=== PATIENT | female | born 1985 | race Caucasian/White ===

== ENCOUNTER 2018-04-09 02:10 | Observation (INO) | payer MEDICAID ==
[~2018-04-09] VITALS: Ht 165.1 cm; Wt 68.0 kg
[2018-04-09 02:10] VITALS: BP_SYST 123
--- NOTE | 2018-04-09 02:10 | NUR ---
Placed in room 06. To gown for exam. Side rails up. Report given to JOEY Monterroso.
--- NOTE | 2018-04-09 02:12 | NUR ---
ER at bedside examining patient.
--- NOTE | 2018-04-09 02:18 | NUR ---
Patient to OB via rney for evaluation.
[2018-04-09] MEDS ORDERED: ACETAMINOPHEN 325 MG TABLET PO ONE (03:45)
--- NOTE | 2018-04-09 05:21 | NUR ---
Patient will be admitted to care of Dr. Fournier. Admitted to OB unit. Will go to room OB-1. Belongings list completed. Summary report printed. Report will be given at bedside.
--- NOTE | 2018-04-09 05:30 | NUR ---
Immobilizer placed to left knee. Pedal pulse within normal limits prior to placement. Pedal pulse within normal limits after immobilizer placed. Pt tolerated well.
[2018-04-09 05:35] VITALS: BP_SYST 123
[2018-04-09] MEDS: HYDROcodone/ACETAMIN 5-325 MG TAB (NORCO/ VICODIN) PO PRN ×2 (05:38→12:14)
[2018-04-09 09:31] LABS: BARBITURATE, URINE NEGATIVE (NEG <=200); BENZODIAZEPINE, URINE NEGATIVE (NEG <=150); CANNABINOID, URINE NEGATIVE (NEG <=50); COCAINE, URINE NEGATIVE (NEG <=150); METHAMPHETAMINES SCREEN,URINE NEGATIVE (NEG <=500); OPIATE, URINE POSITIVE (NEG <=100); PHENCYCLIDINE SCREEN,URINE NEGATIVE (NEG <=25); UR TRICYCLIC ANTIDEPRESSANTS NEGATIVE (NEG <=300); URINE AMPHETAMINE NEGATIVE (NEG <=500); URINE METHADONE NEGATIVE (NEG <=200); URINE OXYCODONE SCREEN NEGATIVE (NEG <=100); URINE PROPOXYPHENE SCREEN NEGATIVE (NEG <=300)
== END 2018-04-09 16:15 | disposition home or self-care (01) ==
LOC: SED 02:10 → SPU 02:23
PROVIDERS: ADMIT Specialist; ATTEND Specialist
DX: O9A.213 Injury, poisoning and certain other consequences of external causes complicating pregnancy, third trimester (principal); S82.002A Unspecified fracture of left patella, initial encounter for closed fracture; Z3A.36 36 weeks gestation of pregnancy; W19.XXXA Unspecified fall, initial encounter; Y92.89 Other specified places as the place of occurrence of the external cause; Y93.89 Activity, other specified; Y99.8 Other external cause status
CPT/HCPCS: 73560; 80307; 99285; G0378